=== PATIENT | female | born 1965 | race Caucasian/White ===

== ENCOUNTER → 2016-12-05 | Outpatient (CLI) | payer OTHER ==
--- NOTE | 2016-12-05 11:54 | RADRPT ---
PROCEDURE: XR Knee 4 Views. CLINICAL INDICATION: Right knee pain. TECHNIQUE: AP, lateral, tunnel and sunrise view of the right knee were obtained. The images review ed on a PACS workstation. COMPARISON: None. FINDINGS: The osseous structures are intact. No destructive bony lesions are observed. Interosseous spaces a re normal. Soft tissues are unremarkable. IMPRESSION: Unremarkable right knee. If further characterization is needed CT or MRI could be helpful. If there is high clinical suspicion for traumatic injury, further evaluation with CT should be consi dered. RPTAT: AA .Reji Manley MD, Date Time Electronically viewed and signed by .Reji Manley MD, MD on 12/05/2016 11:54 .P/
== END | disposition home or self-care (01) ==
LOC: HKI 11:37
PROVIDERS: ATTEND Orthopaedic Surgery
DX: M22.41 Chondromalacia patellae, right knee (principal); M17.11 Unilateral primary osteoarthritis, right knee; M48.00 Spinal stenosis, site unspecified; Z90.710 Acquired absence of both cervix and uterus
CPT/HCPCS: 73564; G0463